=== PATIENT | male | born 1940 | race Caucasian/White ===

== ENCOUNTER 2017-12-08 12:53 | Outpatient (CLI) | payer MEDICARE ==
--- NOTE | 2017-12-08 16:06 | PET ---
PET CT: 12/08/17 HISTORY: 77-year-old male with solitary pulmonary nodule on CT scan of 10/26/17. Patient also has history of prostate cancer. TECHNIQUE: PET scan with CT attenuation correction was performed from the base of the brain through the proxima l thighs following intravenous administration of 10.4 millicuries of 15-fluorodeoxyglucose in the lef t hand. Imaging is performed after an uptake interval of 62 minutes. COMPARISON: None. CORRELATION: CT pulmonary angiogram of 10/26/17 from [facility]. FINDINGS: There is hypermetabolic activity in the right upper lobe lung mass with an SUV of 8. The hypermetabol ic right hilar lymph node is seen with an SUV of 6.7. No hypermetabolic mediastinal, axillary, cervic al or abdominopelvic lymph nodes are seen. No hypermetabolic liver, adrenal or skeletal lesions are s een. There is physiologic activity in the GI and tracts and the visualized portions of the brain. The CT scan used for attenuation correction demonstrates no evidence of pleural effusions or ascites. There is cholelithiasis, right renal cyst and sigmoid diverticulosis. There are postop changes of ri ght hip arthroplasty and posterior spinal fusion in the lower lumbar spine. 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 POS: [facility]
== END 2017-12-08 12:54 | disposition home or self-care (01) ==
LOC: PET 12:53
PROVIDERS: ATTEND Internal Medicine Pulmonary Disease
DX: R91.1 Solitary pulmonary nodule (principal); C34.11 Malignant neoplasm of upper lobe, right bronchus or lung; C77.1 Secondary and unspecified malignant neoplasm of intrathoracic lymph nodes
CPT/HCPCS: 78815; A9552

== ENCOUNTER 2018-02-09 05:37 | Day surgery (SDC) | payer MEDICARE ==
[2018-02-08 13:11] VITALS: BMI 31.9
[2018-02-09] MEDS ORDERED: Fentanyl 100 MCG/2 ML VIAL ONE (06:44)
[2018-02-09] MEDS ORDERED: Lidocaine 2% 10 ML INJ ONE (06:56)
[2018-02-09] MEDS ORDERED: Bupivacaine/Epinephrine 0.25% 30 ML VIAL ONE (06:56)
[2018-02-09] MEDS ORDERED: CEFAZOLIN/Water 2 GM/20 ML SYRINGE ONE (07:17)
--- NOTE | 2018-02-09 09:17 | OP ---
DATE OF PROCEDURE: 02/09/2018 PREOPERATIVE DIAGNOSIS: Lung cancer. POSTOPERATIVE DIAGNOSIS: Lung cancer. PROCEDURE: MediPort (tunneled central line with subcutaneous port) SURGEON: Aaron Eubanks M.D. ANESTHESIA: General. ESTIMATED BLOOD LOSS: Minimal. COMPLICATIONS: None. FINDINGS: Tip of the catheter is at the atriocaval junction. PROCEDURE IN DETAIL: The patient was taken to the operating room and placed supine on the table. Af ter general anesthetic was obtained, the bilateral neck and chest were shaved, prepped, and draped in a sterile fashion. Local anesthetic infiltrated over the internal jugular vein. Internal jugular v ein cannulated using a 22-gauge finder needle followed by Seldinger needle. Wire was passed into the superior vena cava under fluoroscopic guidance. A 1 cm incision was made at the wire insertion site . A separate 4 cm is made in the right upper chest. Subcutaneous pocket made below the lower incisi on. Tubing for the MediPort tunneled from the inferior superior incision, sheath placed over the wir e into the superior vena cava under fluoroscopic guidance. The dilator wire were removed leaving the catheter site into the sheath as the sheath is peeled away the tip of the catheter is at the atrioca jesus junction. MediPort tubing cut to fit the MediPort at the lower incision, connected to the MediPo rt which was sewn to the chest wall in the subcutaneous pocket using Prolene. MediPort draws blood a nd flushes without difficulties, flushed with a heparin flush. All incisions were irrigated and clos ed using 3-0 Monocryl, 4-0 Monocryl, and Dermabond. The patient was en route to recovery in stable c ondition. All sponge counts, needle counts, lap counts are correct.
--- NOTE | 2018-02-09 10:33 | RAD ---
CHEST ONE VIEW: HISTORY: Mediport placement. FINDINGS: The cardiac silhouette is magnified by projection. The pulmonary vasculature is unremarkable. The m ediastinum is midline with postoperative changes and aortic calcification. The tip of a right actuarial intern al jugular implanted catheter overlies the superior vena cava. No evidence of pneumothorax. Metalli c clips overly the right axilla. IMPRESSION: Right internal jugular Mediport is in good radiographic position. POS: [facility]
[2018-02-09] MEDS ORDERED: Lidocaine 1% PF 5 ML VIAL ONE (16:51)
[2018-02-09] MEDS ORDERED: PROPOFOL 200 MG/20 ML VIAL ONE (16:51)
[2018-02-09] MEDS ORDERED: PHENYLEPHRINE-NS 100 MCG/ML 10 ML SYRINGE ONE (16:51)
== END 2018-02-09 09:45 | disposition home or self-care (01) ==
LOC: SDC 05:37
PROVIDERS: ATTEND Surgery
PROC: 02HV33Z Insertion of Infusion Device into Superior Vena Cava, Percutaneous Approach (ICD-10-PCS; principal; 2018-02-09)
PROC: B518ZZA Fluoroscopy of Superior Vena Cava, Guidance (ICD-10-PCS; 2018-02-09)
DX: C34.90 Malignant neoplasm of unspecified part of unspecified bronchus or lung (principal); E11.9 Type 2 diabetes mellitus without complications; I10 Essential (primary) hypertension; E78.00 Pure hypercholesterolemia, unspecified; J45.909 Unspecified asthma, uncomplicated; Z88.8 Allergy status to other drugs, medicaments and biological substances; Z95.1 Presence of aortocoronary bypass graft; Z98.890 Other specified postprocedural states
CPT/HCPCS: 36561; 71045; 77386; C1788; J0131; J1642; J2001; J2704; J3010

== ENCOUNTER 2018-02-10 14:41 | Day surgery (SDC) | payer MEDICARE ==
[2018-02-10 15:13] VITALS: TEMP 97.5
[2018-02-10] MEDS ORDERED: Acetaminophen 500 MG TAB PO SCH (15:15)
[2018-02-10] MEDS ORDERED: diphenhydrAMINE 25 MG CAP PO SCH (15:15)
[2018-02-11] MEDS ORDERED: diphenhydrAMINE 25 MG CAP PO SCH (13:15)
[2018-02-11] MEDS ORDERED: Acetaminophen 500 MG TAB PO SCH (13:15)
== END 2018-02-10 18:21 | disposition home or self-care (01) ==
LOC: ONC/OP 14:41
PROVIDERS: ATTEND Internal Medicine Medical Oncology
PROC: 30233N1 Transfusion of Nonautologous Red Blood Cells into Peripheral Vein, Percutaneous Approach (ICD-10-PCS; principal; 2018-02-10)
DX: C34.90 Malignant neoplasm of unspecified part of unspecified bronchus or lung (principal); D63.0 Anemia in neoplastic disease; E11.9 Type 2 diabetes mellitus without complications; I10 Essential (primary) hypertension; J45.909 Unspecified asthma, uncomplicated; Z88.8 Allergy status to other drugs, medicaments and biological substances; Z79.02 Long term (current) use of antithrombotics/antiplatelets; Z79.82 Long term (current) use of aspirin; Z79.4 Long term (current) use of insulin; Z79.899 Other long term (current) drug therapy
CPT/HCPCS: 77336; 77386; 86850; 86870; 86900; 86901; 86905; 86922

== ENCOUNTER 2018-02-11 12:39 | Day surgery (SDC) | payer MEDICARE ==
[2018-02-11] MEDS ORDERED: diphenhydrAMINE 25 MG CAP PO SCH (13:45)
[2018-02-11] MEDS ORDERED: Acetaminophen 500 MG TAB PO SCH (13:45)
[2018-02-11 16:39] VITALS: BP 160/74; TEMP 97.7
[2018-02-11 17:05] LABS: #Eosinphils 0.1 thou/uL (0.0-0.7); #Lymphocytes 0.5 thou/uL (1.20-3.40); #Monocytes 0.2 thou/uL (0.11-0.59); #Neutrophils 2.2 thou/uL (1.40-6.50); %Basophils 0.4 % (0.0-1.0); %Eosinophils 2.4 % (0.0-10.0); %Lymphocytes 17.2 % (21.0-51.0); %Monocytes 6.7 % (0.0-10.0); %Neutrophils 73.3 % (42.0-75.0); Hemoglobin 7.2 g/dL (14.0-18.0); Mean Corpuscular HGB CONC 32.6 g/dL (32.0-36.0); Mean Corpuscular Hemoglobin 23.5 pg (27.0-31.0); Mean Corpuscular Volume 72.1 fl (80.0-94.0); Mean Platelet Volume 8.3 fL (7.4-10.4); Platelet Count 203 thou/uL (130-400); RBC Distribution Width 19.3 % (11.5-14.5); Red Blood Cell (RBC) Count 3.07 mill/uL (4.70-6.10); White Blood Cell (WBC) Count 3.1 thou/uL (4.8-10.8)
== END 2018-02-11 16:55 | disposition home or self-care (01) ==
LOC: ONC/OP 12:39
PROVIDERS: ATTEND Internal Medicine Medical Oncology
PROC: 30233N1 Transfusion of Nonautologous Red Blood Cells into Peripheral Vein, Percutaneous Approach (ICD-10-PCS; principal; 2018-02-11)
DX: C34.90 Malignant neoplasm of unspecified part of unspecified bronchus or lung (principal); D63.0 Anemia in neoplastic disease; E11.9 Type 2 diabetes mellitus without complications; I10 Essential (primary) hypertension; J45.909 Unspecified asthma, uncomplicated; Z79.02 Long term (current) use of antithrombotics/antiplatelets; Z79.82 Long term (current) use of aspirin; Z79.4 Long term (current) use of insulin; Z79.899 Other long term (current) drug therapy; Z88.8 Allergy status to other drugs, medicaments and biological substances
CPT/HCPCS: 36430; 85025; 86850; 86870; 86900; 86901; 86905; 86922; 96365; 96366; J1642; P9016

== ENCOUNTER 2018-02-20 07:42 | Day surgery (SDC) | payer MEDICARE ==
[2018-02-20] MEDS ORDERED: Acetaminophen 500 MG TAB PO SCH (08:30)
[2018-02-20] MEDS ORDERED: diphenhydrAMINE 25 MG CAP PO SCH (08:30)
[2018-02-20] MEDS ORDERED: Sodium Chloride 0.9% 40 ML ONE (09:10)
[2018-02-20 12:22] LABS: Hemoglobin 7.2 g/dL (14.0-18.0)
[2018-02-20 16:57] VITALS: TEMP 97.6
[2018-02-20 16:58] VITALS: BP 167/72
== END 2018-02-20 17:16 | disposition home or self-care (01) ==
LOC: ONC/OP 07:42
PROVIDERS: ATTEND Internal Medicine Hematology & Oncology
PROC: 30233N1 Transfusion of Nonautologous Red Blood Cells into Peripheral Vein, Percutaneous Approach (ICD-10-PCS; principal; 2018-02-20)
DX: C34.90 Malignant neoplasm of unspecified part of unspecified bronchus or lung (principal); D63.0 Anemia in neoplastic disease; D69.6 Thrombocytopenia, unspecified; I10 Essential (primary) hypertension; E11.9 Type 2 diabetes mellitus without complications; E78.00 Pure hypercholesterolemia, unspecified; J45.909 Unspecified asthma, uncomplicated; Z88.8 Allergy status to other drugs, medicaments and biological substances; Z79.84 Long term (current) use of oral hypoglycemic drugs; Z79.899 Other long term (current) drug therapy; Z95.1 Presence of aortocoronary bypass graft; Z98.890 Other specified postprocedural states
CPT/HCPCS: 36430; 85014; 85018; 86850; 86870; 86900; 86901; 86922; A4216; J1642; P9016

== ENCOUNTER 2018-02-23 07:39 | Day surgery (SDC) | payer MEDICARE ==
[2018-02-23] MEDS ORDERED: Acetaminophen 500 MG TAB PO SCH (08:30)
[2018-02-23] MEDS ORDERED: diphenhydrAMINE 25 MG CAP PO SCH (08:30)
[2018-02-23 09:34] VITALS: BP 201/88; TEMP 97.8
[2018-02-23] MEDS ORDERED: Lidocaine 1% PF 5 ML VIAL ONE (13:13)
[2018-02-23] MEDS ORDERED: PROPOFOL 200 MG/20 ML VIAL ONE (13:13)
--- NOTE | 2018-02-23 14:27 | OP ---
DATE OF PROCEDURE: 02/23/2018 PROCEDURE: Esophagogastroduodenoscopy. PHYSICIAN: Dr. Megha M.D. MEDICATIONS: Given Anesthesiology Department. PREOPERATIVE DIAGNOSES: 1. Recurrent anemia, requiring transfusion. 2. Hemoccult positive stool. POSTPROCEDURE DIAGNOSES: 1. Small hiatal hernia. 2. Otherwise normal upper endoscopy. PROCEDURE IN DETAIL: A written consent was obtained prior to procedure. After adequate sedation, th e forward-viewing endoscope was advanced down the stomach under direct vision to the third portion of duodenum. The duodenum appeared normal. The bulb appeared normal. Pylorus is patent. The gastric antrum, body, fundus, and cardia all appeared normal. A few fundic type gland polyps were noted in the body. Retroflexion showed a small hiatal hernia. GE junction was located at 40 cm. The distal, mid, and upper esophagus appeared normal. There was no source of bleeding identified. The patient tolerated procedure well. ASSESSMENT: 1. Normal upper endoscopy. 2. Small hiatal hernia. PLAN: Proceed with some small-bowel capsule study.
== END 2018-02-23 14:37 | disposition home or self-care (01) ==
LOC: SDC 07:39
PROVIDERS: ATTEND Internal Medicine Gastroenterology
PROC: 0DJ08ZZ Inspection of Upper Intestinal Tract, Via Natural or Artificial Opening Endoscopic (ICD-10-PCS; principal; 2018-02-23)
DX: D50.0 Iron deficiency anemia secondary to blood loss (chronic) (principal); K44.9 Diaphragmatic hernia without obstruction or gangrene; R19.7 Diarrhea, unspecified; J98.4 Other disorders of lung; Z88.8 Allergy status to other drugs, medicaments and biological substances; Z79.82 Long term (current) use of aspirin; Z79.899 Other long term (current) drug therapy; Z98.890 Other specified postprocedural states
CPT/HCPCS: 36415; 36430; 85014; 85018; 86850; 86900; 86901; 86922; 99212; A4216; G0463; J0360; J1642; P9016

== ENCOUNTER 2018-07-19 07:56 | Outpatient (CLI) | payer MEDICARE ==
--- NOTE | 2018-07-19 09:59 | CT ---
CT CHEST WITH IV CONTRAST: Date: 07/19/18 HISTORY: 78-year-old male with right upper lobe lung cancer. Exam requested for restaging status post chemo/ra diation therapy. Patient also has a history of prostate cancer. FINDINGS: Comparison made with CT chest of 10/26/17 from [facility]. Correlation is also ma de with the PET CT scan of 12/08/17. Interval changes of consolidation are seen in the right supra and perihilar lung in a pattern consist ent with radiation changes. No mediastinal, hilar, or axillary mass or lymphadenopathy is seen. 3.5 c m bulla in the left lung is again noted. There is a 4-5 mm peripheral subpleural nodule in the left l ower lobe. Just inferior to this nodule, there is a focal area of peripheral micronodularity. There i s a 6.0 mm nodule in the right posterior lung base. Vascular calcifications are present without evidence of aneurysmal dilatation of the thoracic aorta. No pleural or pericardial effusions are seen. A right-sided Port-A-Cath is present. There is a 5.9 x 1.7 x 3.8 cm focal loculated fluid collection in the subcutaneous fat of the anterior chest, which is stable since the PET scan. Upper abdominal tomograms demonstrate cholelithiasis and right renal cyst. There are degenerative sasha nges in the spine. No osteolytic or osteoblastic lesions are seen. IMPRESSION: 1. Findings are consistent with post radiation changes in the right upper lung. 2. New nodularity in the lower lobes bilaterally. This is new since the previous studies. Possibilit y of metastatic disease should be considered. A follow-up exam in 3 months would be helpful. POS: [facility]
== END 2018-07-19 07:57 | disposition home or self-care (01) ==
LOC: CT 07:56
PROVIDERS: ATTEND Radiology Radiation Oncology
DX: C34.11 Malignant neoplasm of upper lobe, right bronchus or lung (principal); R91.8 Other nonspecific abnormal finding of lung field; Z92.3 Personal history of irradiation; Z92.21 Personal history of antineoplastic chemotherapy
CPT/HCPCS: 71260; 82565

== ENCOUNTER 2019-01-18 10:18 | Outpatient (CLI) | payer MEDICARE ==
[2019-01-18 11:39] LABS: #Basophils 0.1 thou/uL (0.0-0.2); #Eosinphils 0.1 thou/uL (0.0-0.7); #Lymphocytes 0.8 thou/uL (1.20-3.40); #Monocytes 0.6 thou/uL (0.11-0.59); #Neutrophils 5.8 thou/uL (1.40-6.50); %Basophils 0.8 % (0.0-1.0); %Eosinophils 1.1 % (0.0-10.0); %Lymphocytes 10.8 % (21.0-51.0); %Monocytes 8.4 % (0.0-10.0); %Neutrophils 78.9 % (42.0-75.0); Mean Corpuscular HGB CONC 31.6 g/dL (32.0-36.0); Mean Corpuscular Volume 82.3 fL (78.0-98.0); Mean Platelet Volume 6.8 fL (7.4-10.4); Platelet Count 181 thou/uL (130-400); RBC Distribution Width 14.1 % (11.5-14.5); Red Blood Cell (RBC) Count 4.23 mill/uL (4.70-6.10); White Blood Cell (WBC) Count 7.4 thou/uL (4.8-10.8)
[2019-01-18 11:54] LABS: ALT (SGPT) 10 U/L (8-55); AST (SGOT) 13 U/L (5-34); Albumin 3.7 g/dL (3.4-4.8); Alkaline Phosphatase 66 U/L (40-150); Anion Gap 15 mmol/L (10-20); BUN (Urea Nitrogen) 23 mg/dL (8.4-25.7); Bilirubin, Total 0.3 mg/dL (0.2-1.2); Calc. Creatinine Clearance 0 mL/min (70-130); Carbon Dioxide 24 mmol/L (23-31); Chloride 104 mmol/L (98-107); Estimated GFR-MDRD 48; Globulin 3.4 g/dL (2.4-3.5); Glucose 151 mg/dL (83-110); Potassium 4.3 mmol/L (3.5-5.1); Protein, Total 7.1 g/dL (5.8-8.1); Sodium 139 mmol/L (136-145)
[2019-01-18 14:35] LABS: Hemoglobin A1c 5.1 % (4.0-6.0)
--- NOTE | 2019-01-18 14:39 | CT ---
CT CHEST WITHOUT CONTRAST: Date: 01/18/19 Multiple axial tomograms obtained through chest without IV enhancement. INDICATION: Lung cancer. Restaging. Comparison made to chest CT of 07/19/18. FINDINGS: The right apical opacification and pleural thickening along the medial chest has increased when emily red to the prior study. Stranding extends inferior to the right hilum, similar to the prior study. Th e opacification in the medial right apical region encompasses upper lobe bronchial structures. There is a small cavitary lesion within this area of pleural based opacity in the right posterior lung apex measuring approximately 2.5 cm in axial plane. There is stranding and interstitial prominence in the posterior right lung base, probably radiation c hange. This is slightly more prominent today. Similar stranding and interstitial prominence in the left lung base is seen, more prominent than on t he prior study. There are also some early bullous changes in the left lung base, which were noted pre viously. There is a focal area of nodular opacity in the left lung base posteriorly measuring up to 2 .0 cm, which should be followed. This may represent focal infiltrate; however, recurrent neoplasm at this location cannot be excluded. Some pleural based opacity in the left peripheral lung at the lingula is more prominent today with a focal area of opacity measuring 1.7 cm. This may represent pleural based atelectasis, but should be f ollowed to exclude pleural based mass. Atherosclerotic calcification in aorta again noted. Prominent coronary calcification. Images through the upper abdomen show radiopaque gallstones, which had been previously noted. Osseous structures are unremarkable. Within the subcutaneous tissues of the anterior right chest, there is a fluid density, oblong-shaped lesion, which was described on prior exam and is unchanged in size and appearance, continuing to erma ure approximately 6.0 cm length x 1.5 cm width. A focal subcutaneous fluid collection is suspected. IMPRESSION: 1. Increasing pleural based opacification in the medial right apex, probably representing radiation change and progressive scarring. There is a focal area of cavitation within this pleural based densit y as noted above. 2. Increased stranding and interstitial prominence in both lung bases. There is some subtle nodulari ty in the lung base with a focal area measuring 2.0 cm in the posterior left lung base. Continued byron se follow-up is recommended. 3. Pleural based nodular opacity in the peripheral left mid lung at the lingula is seen as described above. Continued follow-up recommended. 4. Cholelithiasis again noted. 5. An oblong-shaped, fluid dense collection in the subcutaneous tissues of the anterior right chest is stable. POS: [facility]
[2019-01-18 15:16] LABS: Creatinine, Urine 54.89 mg/dL (63-166); Microalbumin Urine 58.1 mg/dL (0.5-50.0); Microalbumin/Creat Ratio 1058.5 mg/g (Less than 30)
== END 2019-01-18 10:19 | disposition home or self-care (01) ==
LOC: SCSCT 10:18
PROVIDERS: ATTEND Radiology Radiation Oncology
DX: C34.91 Malignant neoplasm of unspecified part of right bronchus or lung (principal); R91.8 Other nonspecific abnormal finding of lung field; J98.4 Other disorders of lung; K80.20 Calculus of gallbladder without cholecystitis without obstruction
CPT/HCPCS: 71260; 80053; 82043; 83036; 85025

== ENCOUNTER 2019-07-02 10:22 | Outpatient (CLI) | payer MEDICARE ==
--- NOTE | 2019-07-02 12:28 | CT ---
CHEST CT WITHOUT CONTRAST: COMPARISON: 01/18/2019, 07/19/2018. FINDINGS: Mediastinum: Limited evaluation due to the lack of IV contrast. No mediastinal mass, lymphadenopathy or hematoma. Heart: Normal heart size. No pericardial fluid. There is extensive calcification of the mitral annulu s and coronary arteries. Aorta: Atherosclerosis of a nonaneurysmal aorta Upper abdomen: Grossly no acute abnormality. CT evidence of cholelithiasis without evidence of cholec ystitis. Trachea and central bronchi: Patent. Pleural spaces: No significant pleural fluid. Pneumothorax: None. Right lung: There is persistent consolidation with air bronchograms involving the medial right upper lobe. There is right apical pleural thickening. Abnormal attenuation of the right upper lobe measures 1.6 cm mediolateral by 7.0 cm anterior posterior by 5.3 cm craniocaudal. Previously, this ar ea measured 3.0 cm mediolateral by 7.3 cm anterior posterior by 6.5 cm craniocaudal. Slight interval reduction. Residual opacity likely represents post treatment change. Residual neoplasm canno t be excluded. There are no additional areas of abnormal attenuation in the middle lobe or right lower lobe. Linear opacities do remain and are felt to represent scarring predominantly in the right lower lobe. There is a 9 mm nodule in the right lower lobe. There does appear to be some nodularity in the right lung base on the CT from December 2018. There is a 6.5 mm nodule in the right lung base sin ce June 2018. The overall degree of nodularity in the right lung base has decreased compared to the most recent CT. Left lung: Adequate aeration of the left lung. Linear opacities likely represent areas of scarring in the lingula. Osseous structures: No lytic or blastic lesions. IMPRESSION: 1. Findings compatible with presumed post treatment changes involving the right upper lobe/right supr ahilar region with extension into the right apical pleura. No new or obvious tumor is appreciated. Residual tumor in this persistent area of consolidation cannot be excluded. 2. Presumed chronic changes and posttreatment changes in the lung parenchyma. These changes are predo minantly in the lung bases. 3. 0.9 cm nodular opacity in the right lung base which may or may not have been present on the prior examinations. Evaluation of stability is somewhat limited due to the changes in the lung bases. There was evidence of a 6 mm nodular opacity right lung base in June of 2018. Overall degree of nodularity in the right lung base has decreased since the CT from December 2018. Transcribed Date/Time: 07/02/2019 1:22 PM
== END 2019-07-02 10:23 | disposition home or self-care (01) ==
LOC: SCSCT 10:22
PROVIDERS: ATTEND Radiology Radiation Oncology
DX: C34.11 Malignant neoplasm of upper lobe, right bronchus or lung (principal); R91.8 Other nonspecific abnormal finding of lung field
CPT/HCPCS: 71250; 82565